=== PATIENT | male | born 1990 | race African-American/Black ===

== ENCOUNTER 2019-04-15 09:55 | Emergency (ER) | payer OTHER ==
[~2019-04-15] VITALS: Ht 172.7 cm; Wt 81.8 kg
[2019-04-15] MEDS ORDERED: XALA0.007 OU (10:11)
[2019-04-15] MEDS ORDERED: KETOROLAC 30 MG/ML VIAL (J1885) IV ONE (10:45)
[2019-04-15] MEDS ORDERED: CYCLOBENZAPRINE 5MG TABLET PO ONE (10:45)
--- NOTE | 2019-04-15 11:14 | REP ---
Clinical: Trauma. Fall. Technique: Axial noncontrast images through the thoracic spine with coronal and sagittal re-formations. Findings: Alignment and kyphosis maintained. Vertebral bodies and disc spaces are normal. Posterior elements and spinous processes are intact. Spinal canal is patent. There is no evidence for acute fracture / compression injury or subluxation. Impression: Normal thoracic spine CT. No evidence for acute trauma/injury. Electronically Signed by Kendell Hager MD 04/15/2019 11:05 A
--- NOTE | 2019-04-15 11:15 | REP ---
Clinical: Trauma . Technique: Axial noncontrast images from the skull base to the thoracic inlet with coronal and sagittal re-formations Findings: Normal alignment and lordosis is maintained. Cervical vertebral bodies including transverse processes and spinous processes are intact and there is no evidence for acute fracture / compression injury or subluxation. Spinal canal is patent. Posterior elements are intact. Paravertebral soft tissues are normal. Impression: Normal noncontrast cervical spine CT. No evidence for acute pathology or trauma/injury. Electronically Signed by Kendell Hager MD 04/15/2019 11:06 A
--- NOTE | 2019-04-15 11:16 | REP ---
Clinical: Trauma . Technique: Axial noncontrast images from mid T11-S1 with coronal and sagittal re-formations. Findings: Normal alignment and lordosis is maintained. Lumbar vertebral bodies including transverse processes and spinous processes are intact and there is no evidence for acute fracture / compression injury or subluxation. Spinal canal is patent. Posterior elements are intact. Paravertebral soft tissues are normal. Impression: Normal noncontrast lumbosacral spine CT. No evidence for acute pathology or trauma/injury. Electronically Signed by Kendell Hager MD 04/15/2019 11:08 A
[2019-04-15] MEDS ORDERED: CYCL5TAB PO (12:27)
[2019-04-15] MEDS ORDERED: IBUP-1022 PO (12:27)
[2019-04-15 12:34] VITALS: BP 134/71
== END 2019-04-15 12:48 | disposition home or self-care (01) ==
LOC: M ED 09:55
DX: G89.11 Acute pain due to trauma (principal); M54.5 Low back pain; M54.6 Pain in thoracic spine; H40.9 Unspecified glaucoma; Z79.899 Other long term (current) drug therapy; F17.210 Nicotine dependence, cigarettes, uncomplicated
CPT/HCPCS: 72125; 72128; 72131; 96374; 99284; J1885